=== PATIENT | female | born 1985 | race Caucasian/White ===

== ENCOUNTER 2017-06-19 16:06 | Emergency (ER) | payer BC, OTHER ==
[2017-06-19 16:14] VITALS: TEMP 98.4
--- NOTE | 2017-06-19 16:15 | EDPHY ---
H & P Stated Complaint: cp Time Seen by Provider: 06/19/17 16:15 - Personal History LMP (Females 10-55): 22-28 Days Ago Current Tetanus/Diphtheria Vaccine: No Current Tetanus Diphtheria and Acellular Pertussis (TDAP): No - Medical/Surgical History Hx Asthma: No Hx Chronic Respiratory Disease: No Hx Diabetes: No Hx Cardiac Disease: No Hx Renal Disease: No Hx Cirrhosis: No Hx Alcoholism: No Hx HIV/AIDS: No Hx Splenectomy or Spleen Trauma: No Other PMH: Palpatations since teens, - Social History Smoking Status: Never smoked Constitutional: Initial Vital Signs Temperature (C) 36.9 C 06/19/17 16:11 Heart Rate 72 06/19/17 16:11 Respiratory Rate 16 06/19/17 16:11 Blood Pressure 130/92 H 06/19/17 16:11 O2 Sat (%) 99 06/19/17 16:11 O2 Delivery Mode Room Air Allergies/Adverse Reactions: Sulfa (Sulfonamide Antibiotics) Allergy (Mild, Verified 06/19/17 16:10) Rash Home Medications: Medication Instructions Recorded Sertraline HCl 06/19/17 Medical Decision Making - Diagnostics Imaging Results: Imaging Impressions Chest X-Ray 06/19/17 16:33 Impression: Clear lungs. No acute process. Imaging: I viewed and interpreted images myself ED Course/Re-evaluation: CHIEF COMPLAINT: Chest pain. HISTORY OF PRESENT ILLNESS: This patient is a 31 year old female complaining of chest pains ongoing for the past two weeks. Her pain is pleuritic, dull, and localized to her lateral left chest and under left breast. It is worse with chest movement. She had an upper respiratory infection beginning the week after gi, one month ago. Her URI symptoms have largely resolved at this time. After three weeks of symptoms, her chest pain began. Today, she called her physician to set up a prescription refill and mentioned her chest pains. Her primary care provider's office recommended she visit urgent care; staff there referred her to the emergency department. Of note, the patient has a history of palpitations which is common within her family. Her father at age 50 from spontaneous ventricular fibrillation arrest. Her sister and uncles have similar symptoms. She is followed by cardiology and had a normal angiogram two years ago. She has not undergone genetic testing for this. REVIEW OF SYSTEMS: A 10 point review of systems was performed and is negative with the exception of the elements mentioned in the history of present illness. PHYSICAL EXAM: HR, BP, O2 Sat, RR. Temp noted General Appearance: Alert, well hydrated, appropriate, and non-toxic appearing. Head: Atraumatic without scalp tenderness or obvious injury Eyes: Pupils equal, round, reactive to light and accommodation, EOMI, no trauma , no injection. Ears: Clear bilaterally, no perforation, normal landmarks Nose: Atraumatic, no rhinorrhea, clear. Throat: There is no erythema or exudates, no lesions, normal tonsils, mucus membranes moist. Neck: Supple, 2+ carotid upstroke, nontender, no lymphadenopathy. Respiratory: No retractions, no distress, no wheezes, and no accessory muscle use. Lungs are clear to auscultation bilaterally. Cardiovascular: Regular rate and rhythm, no murmurs, rubs, or gallops. Bilateral carotid, radial, dorsalis pedis, and posterior tibial pulses intact. Good capillary refill all extremities. Gastrointestinal: Abdomen is soft, nontender, non-distended, no masses, no rebound, no guarding, no peritoneal signs. Musculoskeletal: Normal active ROM of all extremities, atraumatic. Neurological: Alert, appropriate, and interactive. The patient has normal DTRs and non-focal cranial nerves, motor, sensory, and cerebellar exam. Skin: No rashes, good turgor, no nodules on palpation. Past medical history: History of palpitations. Past surgical history: Noncontributory. Family history: Father at age 50 from spontaneous ventricular fibrillation arrest. Social history: . Lives in [place]. Nonsmoker. DIFFERENTIAL DIAGNOSIS: The differential diagnosis for the patient's chest pain included but was not limited to myocardial ischemia, pulmonary embolus, chest wall pain, pleural inflammation, and pulmonary infectious causes. MEDICAL DECISION MAKIN31 year old female presents with pleuritic chest pain ongoing for two weeks following an upper respiratory infection. Exam is unremarkable. Plan for chest x -ray. The patient is followed by cardiology and had a normal angiogram two years ago. I will not complete EKG at this time. I discussed genetic testing for conditions presenting with palpitations related to having a spontaneous arrest as the patient and her sister and uncle have had palpitations similar to her father's symptoms. I will provide a referral to Dr. Yair Torres, cardiac electrophysiology specialist. 17:01 Reviewed chest x-ray. Negative for acute intrathoracic processes. 17:05 Reassessed patient. Discussed imaging studies. Plan to discharge home in good condition. Follow up and return precautions discussed. She is comfortable with this plan. I contacted Dr. Torres, and she will contact his office for follow up regarding her palpitations. Departure - Departure Disposition: Home, Routine, Self-Care Clinical Impression: Chest pain, pleuritic Condition: Good Instructions: Chest Pain (ED), Pleurisy (ED) Additional Instructions: 1. Follow up with your primary care provider for continued evaluation of symptoms unresolved. 2. Follow up with Dr. Torres, residential youth counselor, for further evaluation of your palpitations and family history of cardiac abnormalities as we discussed. 3. Return to the emergency department if you develop fever, worsening or changing chest pain or pressure, difficulty breathing, or other worsening of condition. 4. Take Ibuprofen 600mg every 6-8 hours with food as needed for pain. Referrals: Francisca Silvestre MD [Primary Care Provider] - As per Instructions Scott Torres MD [Other] - As per Instructions (Cardiac Electrophysiology - [facility] ) Report Scribed for: Claude Mendoza Report Scribed by: Nikki Mojica Date of Report: 06/19/17 Time of Report: 16:16
[2017-06-19 17:11] VITALS: BP 113/70; PULSE 71; RESP 18; O2SAT 98
== END 2017-06-19 17:11 | disposition home or self-care (01) ==
DX: R07.89 Other chest pain (principal)